=== PATIENT | female | born 1970 | race Caucasian/White ===

== ENCOUNTER 2019-06-08 13:15 | Inpatient (IN) | payer OTHER ==
[2019-06-08] MEDS ORDERED: Promethazine 12.5 MG in Sodium Chloride 0.9% 50 ML IV PRN (15:27)
[2019-06-08] MEDS: Sodium Chloride 0.9% 1,000 ML IV SCH (15:56)
[2019-06-08] MEDS ORDERED: Ciprofloxacin in D5W 400 MG in Premix Bag 1 BAG IV ONE ×2 (16:00)
[2019-06-08] MEDS: Acetaminophen 325 MG Tab PO PRN ×2 (16:04→20:00)
[2019-06-08] MEDS: Ondansetron 4 MG Tab.DIS PO PRN (16:05)
--- NOTE | 2019-06-08 16:24 | PCM.HP.2 ---
H&P History of Present Illness - General Date of Service: 06/08/19 Admit Problem/Dx: Admission Diagnosis/Problem Admission Diagnosis/Problem UTI, Urinary tract infectious disease Source of Information: Patient - History of Present Illness Initial Comments - Free Text/Narative: Patient started having symptoms of UTI, burning with urination at end of stream , frequency, pelvic/flank pain on Monday. Seen by Dr Barragan, her PCP on Monday as she was due to have labs. Was started on Bactrim DS for UTI. Patient has had fevers, rigors, chills on and off since Monday. She has been alternating with Tylenol and Ibuprofen since then. She has had nausea, but no vomiting or diarrhea. Loss of appetite and not drinking much. Denies any sinus symptoms, sore throat, shortness of breath, cough, chest pain, rash or joint pains. 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 History of Diabetes, Hypertension, PCOS, s/p hysterectomy/oophorectomy this year. headache Pain Score (Numeric/FACES): 3 - Related Data Allergies/Adverse Reactions: Allergies Allergy/AdvReac Type Severity Reaction Status Date / Time morphine Allergy Itching Verified 06/08/19 15:52 Home Medications: Home Meds Aspirin [Adult Low Dose Aspirin EC] 81 mg PO DAILY 06/08/19 [History] Dulaglutide [Trulicity] 0.75 mg SQ WEEKLY 06/08/19 [History] Estradiol 1 mg PO DAILY 06/08/19 [History] Lisinopril 20 mg PO DAILY 06/08/19 [History] Spironolactone [Aldactone] 25 mg PO DAILY 06/08/19 [History] Sulfamethoxazole/Trimethoprim [Bactrim Ds Tablet] 1 tab PO BID 06/08/19 [History ] atorvaSTATin [Lipitor] 5 mg PO BEDTIME 06/08/19 [History] metFORMIN [Glucophage XR] 1,000 mg PO BIDMEALS 06/08/19 [History] Past Medical History Cardiovascular History: Reports: High Cholesterol, Hypertension 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: Polycystic Ovaries (hirsutism) : 1 Para: 1 Endocrine/Metabolic History: Reports: Diabetes, Type II - Infectious Disease History Infectious Disease History: Reports: Chicken Pox, Shingles - Past Surgical History Female Surgical History: Reports: Hysterectomy, Salpingo-Oophorectomy Social & Family History - Tobacco Use Smoking Status *Q: Never Smoker - Caffeine Use Caffeine Use: Reports: Soda - Recreational Drug Use Recreational Drug Use: No - Living Situation & Occupation Living situation: Reports: 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 Denies: Abdominal Pain, Black Stool, Bloody Stool, Constipation, Diarrhea, Vomiting Genitourinary: Reports: Dysuria, Frequency, Hematuria. Denies: Flank Pain Musculoskeletal: Denies: Joint Pain Skin: Reports: No Symptoms Psychiatric: Reports: No Symptoms Neurological: Reports: No Symptoms Hematologic/Lymphatic: Reports: No Symptoms Exam - Exam Exam: See Below - Vital Signs Vital Signs: Last Vital Signs Temp 36.9 C 06/08/19 15:27 Pulse 121 H 06/08/19 15:27 Resp 18 06/08/19 15:27 BP 139/91 H 06/08/19 15:27 Pulse Ox 97 06/08/19 15:27 Weight: 103.238 kg - Exam General: Alert, Oriented, Cooperative HEENT: PERRLA, Conjunctiva Clear, EACs Clear, EOMI, Hearing Intact, Mucosa Moist & [place] (geographic tongue), Nares Patent, Normal Nasal Septum, Posterior Pharynx Clear, TMs Clear Neck: Supple, Trachea Midline. No: Lymphadenopathy Lungs: Clear to Auscultation, Normal Respiratory Effort Cardiovascular: Regular Rate, Regular Rhythm GI/Abdominal Exam: Normal Bowel Sounds, Soft, Non-Tender, No Organomegaly, No Distention, No Mass, Tender (LLQ), Other (No CVA tenderness). No: Guarding, Rigid Extremities: Normal Inspection, Normal Range of Motion, Non-Tender, No Pedal Edema, Normal Capillary Refill Skin: Warm, Dry, Intact Neuro Extensive - Mental Status: Alert, Oriented x3, Normal Mood/Affect, Normal Cognition - Patient Data Lab Results Last 24 hrs: Laboratory Results - last 24 hr 06/08/19 06/08/19 Range/Units 13:15 13:22 WBC 9.0 (4.5-12.0) X10-3/uL RBC 4.99 (3.23-5.20) x10(6)uL Hgb 14.4 (11.5-15.5) g/dL Hct 42.7 (30.0-51.3) % MCV 85.6 (80-96) fL MCH 28.8 (27.7-33.6) pg MCHC 33.6 (32.2-35.4) g/dL RDW 13.0 (11.5-15.5) % Plt Count 348 (125-369) X10(3)uL MPV 8.5 (7.4-10.4) fL Neut % (Auto) 70.8 (46-82) % Lymph % (Auto) 11.3 L (13-37) % [place] % (Auto) 14.3 H (4-12) % Eos % (Auto) 3 (1.0-5.0) % Baso % (Auto) 0 (0-2) % Neut # (Auto) 6.4 (1.6-8.3) # Lymph # (Auto) 1.0 (0.6-5.0) # [place] # (Auto) 1.3 (0.0-1.3) # Eos # (Auto) 0.3 (0.0-0.8) # Baso # (Auto) 0.0 (0.0-0.2) # Urine Color Brown (YELLOW) Urine Appearance Cloudy (CLEAR) Urine pH 5.0 (5.0-6.5) Ur Specific [place] 1.020 (1.010-1.025) Urine Protein 100 H (NEGATIVE) mg/dL Urine Glucose (UA) Normal (NORMAL) mg/dL Urine Ketones 50 H (NEGATIVE) mg/dL Urine Occult Blood Large H (NEGATIVE) Urine Nitrite Positive H (NEGATIVE) Urine Bilirubin Small H (NEGATIVE) Urine Urobilinogen 1 H (NEGATIVE) mg/dL Ur Leukocyte Esterase Moderate H (NEGATIVE) Urine RBC Packed H (0-5) Result Diagrams: 06/08/19 13:15 06/08/19 16:12 - Problem List (1) UTI (urinary tract infection) SNOMED Code(s): 04681016 ICD Code: N39.0 - URINARY TRACT INFECTION, SITE NOT SPECIFIED Status: Acute Current Visit: Yes Qualifiers: Urinary tract infection type: site unspecified Hematuria presence: with hematuria Qualified Code(s): N39.0 - Urinary tract infection, site not specified; R31.9 - Hematuria, unspecified (2) Diabetes type 2, controlled SNOMED Code(s): 05614529, 721156713 ICD Code: E11.9 - TYPE 2 DIABETES MELLITUS WITHOUT COMPLICATIONS Status: Acute Current Visit: Yes Qualifiers: Diabetes mellitus extermination supervisor insulin use: without skilled nursing use Diabetes mellitus complication status: without complication Qualified Code(s): E11.9 - Type 2 diabetes mellitus without complications (3) Hypertension SNOMED Code(s): 48834892 ICD Code: I10 - ESSENTIAL (PRIMARY) HYPERTENSION Status: Acute Current Visit: Yes Qualifiers: Hypertension type: essential hypertension Qualified Code(s): I10 - Essential (primary) hypertension (4) Hyperlipidemia SNOMED Code(s): 72647545 ICD Code: E78.5 - HYPERLIPIDEMIA, UNSPECIFIED Status: Acute Current Visit : Yes Qualifiers: Hyperlipidemia type: mixed hyperlipidemia Qualified Code(s): E78.2 - Mixed hyperlipidemia (5) Hirsutism SNOMED Code(s): 392568687 ICD Code: L68.0 - HIRSUTISM Status: Acute Current Visit: Yes (6) History of PCOS SNOMED Code(s): 628806472 ICD Code: Z87.42 - PERSONAL HISTORY OF OTH DISEASES OF THE FEMALE GENITAL TRACT Status: Acute Current Visit: Yes Problem List Initiated/Reviewed/Updated: Yes Orders Last 24hrs: Active Orders 24 hr Category Date Time Status Patient Status [ADT] Routine ADT 06/08/19 15:27 Active Ambulate [RC] PER UNIT ROUTINE Care 06/08/19 15:29 Active Blood Glucose Check, Bedside [RC] BIDMEALS Care 06/08/19 15:27 Active Oxygen Therapy [RC] PRN Care 06/08/19 15:27 Active Up ad Christal [RC] ASDIRECTED Care 06/08/19 15:27 Active VTE/DVT Education [RC] Per Unit Routine Care 06/08/19 15:27 Active Vital Signs [RC] Q4H Care 06/08/19 15:27 Active Clear Liquid Diet [DIET] Diet 06/08/19 Dinner Active BASIC METABOLIC PANEL,BMP [CHEM] Routine Lab 06/08/19 15:56 Ordered BASIC METABOLIC PANEL,BMP [CHEM] Routine Lab 06/09/19 06:00 Ordered CBC WITH AUTO DIFF [HEME] Routine Lab 06/09/19 06:00 Ordered CULTURE URINE [RM] Routine Lab 06/08/19 13:22 Received Acetaminophen [Tylenol] Med 06/08/19 15:27 Active 650 mg PO Q4H PRN Aspirin [Halfprin] Med 06/09/19 09:00 Active 81 mg PO DAILY Ciprofloxacin in D5W [Cipro in D5W 400 MG/200 ML] 400 Med 06/08/19 16:00 Active mg Premix Bag 1 bag IV ONETIME Ciprofloxacin in D5W [Cipro in D5W 400 MG/200 ML] 400 Med 06/08/19 15:45 Pending mg Premix Bag 1 bag IV Q12HR Eflornithine HCl [Vaniqa] Med 06/08/19 21:00 Pending 1 gm TP BID Enoxaparin [Lovenox] Med 06/08/19 15:30 Pending 40 mg SUBCUT Q24H Estradiol Med 06/09/19 09:00 Active 1 mg PO DAILY Lisinopril [Prinivil] Med 06/09/19 09:00 Active 20 mg PO DAILY Ondansetron [Zofran ODT] Med 06/08/19 15:27 Active 4 mg PO Q4H PRN Promethazine [Phenergan] 12.5 mg Med 06/08/19 15:27 Active Sodium Chloride 0.9% [Normal Saline] 50 ml IV Q6H Sodium Chloride 0.9% [Normal Saline] 1,000 ml Med 06/08/19 15:30 Active IV ASDIRECTED Spironolactone [Aldactone] Med 06/09/19 09:00 Active 25 mg PO DAILY atorvaSTATin [Lipitor] Med 06/08/19 21:00 Active 5 mg PO BEDTIME metFORMIN [Glucophage XR] Med 06/08/19 18:00 Active 1,000 mg PO BIDMEALS Resuscitation Status Routine Resus Stat 06/08/19 15:27 Ordered Medication Orders Acetaminophen (Tylenol) 650 mg PO Q4H PRN PRN Reason: Pain (Mild 1-3)/fever Last Admin: 06/08/19 16:04 Dose: 650 mg Aspirin (Halfprin) 81 mg PO DAILY JOYA Atorvastatin Calcium (Lipitor) 5 mg PO BEDTIME JOYA Enoxaparin Sodium (Lovenox) 40 mg SUBCUT Q24H [facility] Estradiol (Estradiol) 1 mg PO DAILY [facility] Ciprofloxacin/Dextrose 400 mg/ (Premix) 200 mls @ 200 mls/hr IV Q12HR [facility] Promethazine HCl 12.5 mg/ (Sodium Chloride) 50.5 mls @ 200 mls/hr IV Q6H PRN PRN Reason: Nausea/Vomiting Sodium Chloride (Normal Saline) 1,000 mls @ 125 mls/hr IV ASDIRECTED [facility] Last Admin: 06/08/19 15:56 Dose: 125 mls/hr Ciprofloxacin/Dextrose 400 mg/ (Premix) 200 mls @ 200 mls/hr IV ONETIME ONE Stop: 06/08/19 16:59 Last Admin: 06/08/19 15:54 Dose: 200 mls/hr Lisinopril (Prinivil) 20 mg PO DAILY [facility] Metformin HCl (Glucophage Xr) 1,000 mg PO BIDMEALS [facility] Non-Formulary Medication (Eflornithine Hcl [Vaniqa]) 1 gm TP BID [facility] Ondansetron HCl (Zofran Odt) 4 mg PO Q4H PRN PRN Reason: nausea, able to take PO Last Admin: 06/08/19 16:05 Dose: 4 mg Spironolactone (Aldactone) 25 mg PO DAILY [facility] Assessment/Plan Comment:: 1. Admit to Inpatient for failed outpatient treatment of UTI, fevers/rigors. 2. Add BMP, UC is ordered. Repeat labs in AM. 3. Ciprofloxacin 400 mg IV q12hr. 4. DVT prophylaxis Lovenox 40 mg SQ daily. 5. Clear liquid diet. 6. Accuchecks bid with meals. 7. Continue home medications, except Trulicity as she takes this on Monday. 8. FULL CODE 9. Adjust treatments as necessary.
[2019-06-08] MEDS: metFORMIN 500 MG Tab.ER PO SCH (17:24)
[2019-06-08] MEDS: Enoxaparin 40 MG/0.4 ML Syringe SUBCUT SCH (17:24)
[2019-06-08] MEDS: atorvaSTATin 10 MG Tab PO SCH (20:00)
[2019-06-08] MEDS ORDERED: EFLORNITHINE HCL TP SCH (21:00)
[2019-06-09] MEDS: Sodium Chloride 0.9% 1,000 ML IV SCH ×3 (00:46→19:37)
[2019-06-09] MEDS: Ciprofloxacin in D5W 400 MG in Premix Bag 1 BAG IV SCH ×4 (04:13→16:06)
[2019-06-09] MEDS: Ondansetron 4 MG Tab.DIS PO PRN (06:06)
[2019-06-09] MEDS: Acetaminophen 325 MG Tab PO PRN ×2 (06:06→23:19)
[2019-06-09] MEDS: metFORMIN 500 MG Tab.ER PO SCH ×2 (07:55→18:31)
[2019-06-09] MEDS: Spironolactone 25 MG Tab PO SCH (08:01)
[2019-06-09] MEDS: Aspirin 81 MG Tab.EC PO SCH (08:02)
[2019-06-09] MEDS: Lisinopril 20 MG Tab PO SCH (08:02)
--- NOTE | 2019-06-09 09:14 | PCM.PN ---
- General Info Date of Service: 06/09/19 Subjective Update: Patient feeling better, some nausea today but resolved with medication. Had regular breakfast this morning and felt it went ok. Still having some LLQ pain, less blood in urine. No fevers overnight and this morning. Small bowel movement today. - Patient Data Vitals - Most Recent: Last Vital Signs Temp 36.3 C 06/09/19 08:00 Pulse 79 06/09/19 08:00 Resp 16 06/09/19 08:00 BP 118/86 06/09/19 08:02 Pulse Ox 95 06/09/19 08:00 Weight - Most Recent: 103.238 kg Lab Results Last 24 Hours: Laboratory Results - last 24 hr 06/08/19 06/08/19 06/08/19 Range/Units 13:15 13:22 16:12 WBC 9.0 (4.5-12.0) X10-3/uL RBC 4.99 (3.23-5.20) x10(6)uL Hgb 14.4 (11.5-15.5) g/dL Hct 42.7 (30.0-51.3) % MCV 85.6 (80-96) fL MCH 28.8 (27.7-33.6) pg MCHC 33.6 (32.2-35.4) g/dL RDW 13.0 (11.5-15.5) % Plt Count 348 (125-369) X10(3)uL MPV 8.5 (7.4-10.4) fL Neut % (Auto) 70.8 (46-82) % Lymph % (Auto) 11.3 L (13-37) % [place] % (Auto) 14.3 H (4-12) % Eos % (Auto) 3 (1.0-5.0) % Baso % (Auto) 0 (0-2) % Neut # (Auto) 6.4 (1.6-8.3) # Lymph # (Auto) 1.0 (0.6-5.0) # [place] # (Auto) 1.3 (0.0-1.3) # Eos # (Auto) 0.3 (0.0-0.8) # Baso # (Auto) 0.0 (0.0-0.2) # Sodium 134 L (135-145) mmol/L Potassium 3.8 (3.5-5.3) mmol/L Chloride 94 L (100-110) mmol/L Carbon Dioxide 29 (21-32) mmol/L BUN 12 (7-18) mg/dL Creatinine 1.0 (0.55-1.02) mg/dL Est Cr Clr Drug Dosing 70.16 mL/min Estimated GFR (MDRD) 59 L (>60) BUN/Creatinine Ratio 12.0 (9-20) Glucose 97 (80-116) mg/dL POC Glucose (80-116) mg/dL Calcium 8.7 (8.6-10.2) mg/dL Urine Color Brown (YELLOW) Urine Appearance Cloudy (CLEAR) Urine pH 5.0 (5.0-6.5) Ur Specific [place] 1.020 (1.010-1.025) Urine Protein 100 H (NEGATIVE) mg/dL Urine Glucose (UA) Normal (NORMAL) mg/dL Urine Ketones 50 H (NEGATIVE) mg/dL Urine Occult Blood Large H (NEGATIVE) Urine Nitrite Positive H (NEGATIVE) Urine Bilirubin Small H (NEGATIVE) Urine Urobilinogen 1 H (NEGATIVE) mg/dL Ur Leukocyte Esterase Moderate H (NEGATIVE) Urine RBC Packed H (0-5) 06/08/19 06/09/19 06/09/19 Range/Units 17:30 06:18 06:18 WBC 6.9 (4.5-12.0) X10-3/uL RBC 4.40 (3.23-5.20) x10(6)uL Hgb 12.6 (11.5-15.5) g/dL Hct 37.4 (30.0-51.3) % MCV 85.2 (80-96) fL MCH 28.6 (27.7-33.6) pg MCHC 33.6 (32.2-35.4) g/dL RDW 12.9 (11.5-15.5) % Plt Count 292 (125-369) X10(3)uL MPV 8.2 (7.4-10.4) fL Neut % (Auto) 56.2 (46-82) % Lymph % (Auto) 19.5 (13-37) % [place] % (Auto) 17.9 H (4-12) % Eos % (Auto) 6 H (1.0-5.0) % Baso % (Auto) 1 (0-2) % Neut # (Auto) 4.0 (1.6-8.3) # Lymph # (Auto) 1.3 (0.6-5.0) # [place] # (Auto) 1.2 (0.0-1.3) # Eos # (Auto) 0.4 (0.0-0.8) # Baso # (Auto) 0.0 (0.0-0.2) # Sodium 137 (135-145) mmol/L Potassium 3.6 (3.5-5.3) mmol/L Chloride 99 L D (100-110) mmol/L Carbon Dioxide 28 (21-32) mmol/L BUN 9 (7-18) mg/dL Creatinine 0.9 (0.55-1.02) mg/dL Est Cr Clr Drug Dosing 77.95 mL/min Estimated GFR (MDRD) > 60 (>60) BUN/Creatinine Ratio 10.0 (9-20) Glucose 119 H (80-116) mg/dL POC Glucose 94 (80-116) mg/dL Calcium 7.9 L (8.6-10.2) mg/dL Urine Color (YELLOW) Urine Appearance (CLEAR) Urine pH (5.0-6.5) Ur Specific [place] (1.010-1.025) Urine Protein (NEGATIVE) mg/dL Urine Glucose (UA) (NORMAL) mg/dL Urine Ketones (NEGATIVE) mg/dL Urine Occult Blood (NEGATIVE) Urine Nitrite (NEGATIVE) Urine Bilirubin (NEGATIVE) Urine Urobilinogen (NEGATIVE) mg/dL Ur Leukocyte Esterase (NEGATIVE) Urine RBC (0-5) 06/09/19 Range/Units 08:05 WBC (4.5-12.0) X10-3/uL RBC (3.23-5.20) x10(6)uL Hgb (11.5-15.5) g/dL Hct (30.0-51.3) % MCV (80-96) fL MCH (27.7-33.6) pg MCHC (32.2-35.4) g/dL RDW (11.5-15.5) % Plt Count (125-369) X10(3)uL MPV (7.4-10.4) fL Neut % (Auto) (46-82) % Lymph % (Auto) (13-37) % [place] % (Auto) (4-12) % Eos % (Auto) (1.0-5.0) % Baso % (Auto) (0-2) % Neut # (Auto) (1.6-8.3) # Lymph # (Auto) (0.6-5.0) # [place] # (Auto) (0.0-1.3) # Eos # (Auto) (0.0-0.8) # Baso # (Auto) (0.0-0.2) # Sodium (135-145) mmol/L Potassium (3.5-5.3) mmol/L Chloride (100-110) mmol/L Carbon Dioxide (21-32) mmol/L BUN (7-18) mg/dL Creatinine (0.55-1.02) mg/dL Est Cr Clr Drug Dosing mL/min Estimated GFR (MDRD) (>60) BUN/Creatinine Ratio (9-20) Glucose (80-116) mg/dL POC Glucose 123 H (80-116) mg/dL Calcium (8.6-10.2) mg/dL Urine Color (YELLOW) Urine Appearance (CLEAR) Urine pH (5.0-6.5) Ur Specific [place] (1.010-1.025) Urine Protein (NEGATIVE) mg/dL Urine Glucose (UA) (NORMAL) mg/dL Urine Ketones (NEGATIVE) mg/dL Urine Occult Blood (NEGATIVE) Urine Nitrite (NEGATIVE) Urine Bilirubin (NEGATIVE) Urine Urobilinogen (NEGATIVE) mg/dL Ur Leukocyte Esterase (NEGATIVE) Urine RBC (0-5) Angel Results Last 24 Hours: Microbiology 06/08/19 13:22 Urine Culture - Preliminary Urine, Clean Catch NO GROWTH AFTER 1 DAY Med Orders - Current: Current Medications Acetaminophen (Tylenol) 650 mg PO Q4H PRN PRN Reason: Pain (Mild 1-3)/fever Last Admin: 06/09/19 06:06 Dose: 650 mg Aspirin (Halfprin) 81 mg PO DAILY [facility] Last Admin: 06/09/19 08:02 Dose: 81 mg Atorvastatin Calcium (Lipitor) 5 mg PO BEDTIME [facility] Last Admin: 06/08/19 20:00 Dose: 5 mg Enoxaparin Sodium (Lovenox) 40 mg SUBCUT Q24H [facility] Last Admin: 06/08/19 17:24 Dose: 40 mg Estradiol (Estradiol) 1 mg PO DAILY [facility] Ciprofloxacin/Dextrose 400 mg/ (Premix) 200 mls @ 200 mls/hr IV Q12H [facility] Last Admin: 06/09/19 04:13 Dose: 200 mls/hr Promethazine HCl 12.5 mg/ (Sodium Chloride) 50.5 mls @ 200 mls/hr IV Q6H PRN PRN Reason: Nausea/Vomiting Sodium Chloride (Normal Saline) 1,000 mls @ 125 mls/hr IV ASDIRECTED [facility] Last Admin: 06/09/19 00:46 Dose: 125 mls/hr Lisinopril (Prinivil) 20 mg PO DAILY [facility] Last Admin: 06/09/19 08:02 Dose: 20 mg Metformin HCl (Glucophage Xr) 1,000 mg PO BIDMEALS [facility] Last Admin: 06/09/19 07:55 Dose: 1,000 mg Ondansetron HCl (Zofran Odt) 4 mg PO Q4H PRN PRN Reason: nausea, able to take PO Last Admin: 06/09/19 06:06 Dose: 4 mg Spironolactone (Aldactone) 25 mg PO DAILY [facility] Last Admin: 06/09/19 08:01 Dose: 25 mg Discontinued Medications Ciprofloxacin/Dextrose 400 mg/ (Premix) 200 mls @ 200 mls/hr IV ONETIME ONE Stop: 06/08/19 16:59 Last Admin: 06/08/19 15:54 Dose: 200 mls/hr Non-Formulary Medication (Eflornithine Hcl [Vaniqa]) 1 gm TP BID [facility] - Exam General: Alert, Oriented, Cooperative Lungs: Clear to Auscultation, Normal Respiratory Effort Cardiovascular: Regular Rate, Regular Rhythm GI/Abdominal Exam: Normal Bowel Sounds, Soft, No Distention, Guarding (LLQ), Tender (LLQ). No: Rigid, Rebound Extremities: No Pedal Edema - Problem List & Annotations (1) UTI (urinary tract infection) SNOMED Code(s): 94636199 Code(s): N39.0 - URINARY TRACT INFECTION, SITE NOT SPECIFIED Status: Acute Current Visit: Yes Qualifiers: Urinary tract infection type: site unspecified Hematuria presence: with hematuria Qualified Code(s): N39.0 - Urinary tract infection, site not specified; R31.9 - Hematuria, unspecified (2) Diabetes type 2, controlled SNOMED Code(s): 69591527, 509971079 Code(s): E11.9 - TYPE 2 DIABETES MELLITUS WITHOUT COMPLICATIONS Status: Acute Current Visit: Yes Qualifiers: Diabetes mellitus custodial insulin use: without terminal makeup operator use Diabetes mellitus complication status: without complication Qualified Code(s): E11.9 - Type 2 diabetes mellitus without complications (3) Hypertension SNOMED Code(s): 36540649 Code(s): I10 - ESSENTIAL (PRIMARY) HYPERTENSION Status: Acute Current Visit: Yes Qualifiers: Hypertension type: essential hypertension Qualified Code(s): I10 - Essential (primary) hypertension (4) Hyperlipidemia SNOMED Code(s): 78664002 Code(s): E78.5 - HYPERLIPIDEMIA, UNSPECIFIED Status: Acute Current Visit : Yes Qualifiers: Hyperlipidemia type: mixed hyperlipidemia Qualified Code(s): E78.2 - Mixed hyperlipidemia (5) Hirsutism SNOMED Code(s): 254111318 Code(s): L68.0 - HIRSUTISM Status: Acute Current Visit: Yes (6) History of PCOS SNOMED Code(s): 053415858 Code(s): Z87.42 - PERSONAL HISTORY OF OTH DISEASES OF THE FEMALE GENITAL TRACT Status: Acute Current Visit: Yes - Problem List Review Problem List Initiated/Reviewed/Updated: Yes - My Orders Last 24 Hours: My Active Orders 06/08/19 15:27 Patient Status [ADT] Routine Blood Glucose Check, Bedside [RC] BIDMEALS Oxygen Therapy [RC] PRN Up ad Christal [RC] ASDIRECTED VTE/DVT Education [RC] Per Unit Routine Vital Signs [RC] QSHIFT Acetaminophen [Tylenol] 650 mg PO Q4H PRN Ondansetron [Zofran ODT] 4 mg PO Q4H PRN Promethazine [Phenergan] 12.5 mg Sodium Chloride 0.9% [Normal Saline] 50 ml IV Q6H Resuscitation Status Routine 06/08/19 15:29 Ambulate [RC] PER UNIT ROUTINE 06/08/19 15:30 Sodium Chloride 0.9% [Normal Saline] 1,000 ml IV ASDIRECTED 06/08/19 16:00 Enoxaparin [Lovenox] 40 mg SUBCUT Q24H 06/08/19 18:00 metFORMIN [Glucophage XR] 1,000 mg PO BIDMEALS 06/08/19 21:00 atorvaSTATin [Lipitor] 5 mg PO BEDTIME 06/09/19 04:00 Ciprofloxacin in D5W [Cipro in D5W 400 MG/200 ML] 400 mg Premix Bag 1 bag IV Q12H 06/09/19 09:00 Aspirin [Halfprin] 81 mg PO DAILY Estradiol 1 mg PO DAILY Lisinopril [Prinivil] 20 mg PO DAILY Spironolactone [Aldactone] 25 mg PO DAILY 06/09/19 Breakfast Regular Diet [DIET] - Plan Plan:: 1. UC shows no growth so far, CBC/BMP normal. 3. Ciprofloxacin 400 mg IV q12hr. 4. DVT prophylaxis Lovenox 40 mg SQ daily. 5. Change diet to regular, will watch her sugars and change to Consistent carb if needed. 6. Accuchecks bid with meals. 7. Continue home medications, except Trulicity as she takes this on Monday. 8. FULL CODE 9. Adjust treatments as necessary.
[2019-06-09] MEDS: Estradiol 1 MG Tab PO SCH (11:37)
[2019-06-09] MEDS: Enoxaparin 40 MG/0.4 ML Syringe SUBCUT SCH (16:02)
[2019-06-09] MEDS: atorvaSTATin 10 MG Tab PO SCH (20:17)
[2019-06-10] MEDS: Sodium Chloride 0.9% 1,000 ML IV SCH (03:45)
[2019-06-10] MEDS: Ciprofloxacin in D5W 400 MG in Premix Bag 1 BAG IV SCH ×2 (03:45)
[2019-06-10] MEDS: Acetaminophen 325 MG Tab PO PRN (07:50)
[2019-06-10] MEDS: metFORMIN 500 MG Tab.ER PO SCH (08:52)
[2019-06-10] MEDS: Estradiol 1 MG Tab PO SCH (08:53)
[2019-06-10] MEDS: Aspirin 81 MG Tab.EC PO SCH (08:53)
[2019-06-10] MEDS: Spironolactone 25 MG Tab PO SCH (08:53)
[2019-06-10] MEDS: Lisinopril 20 MG Tab PO SCH (08:53)
--- NOTE | 2019-06-10 12:45 | PCM.DCSUM1 ---
Discharge Summary - Hospital Course HPI Initial Comments: 49 yr old patient started having symptoms of UTI, burning with urination at end of stream, frequency, pelvic/flank pain on Monday. Seen by Dr Barragan, her PCP on Monday as she was due to have labs. Was started on Bactrim DS for UTI. Patient has had fevers, rigors, chills on and off since Monday. She has been alternating with Tylenol and Ibuprofen since then. She has had nausea, but no vomiting or diarrhea. Loss of appetite and not drinking much. Denies any sinus symptoms, sore throat, shortness of breath, cough, chest pain, rash or joint pains. 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 History of Diabetes, Hypertension, PCOS, s/p hysterectomy/oophorectomy this year. - Discharge Data Discharge Date: 06/10/19 Discharge Disposition: Home, Self-Care 01 Condition: Good - Referral to Home Health Primary Care Physician: Juanita Barragan MD - Discharge Diagnosis/Problem(s) (1) UTI (urinary tract infection) SNOMED Code(s): 42748377 ICD Code: N39.0 - URINARY TRACT INFECTION, SITE NOT SPECIFIED Status: Acute Current Visit: Yes Problem Details: E. coli([facility] urine culture results): sensitive to Ciprofloxacin Qualifiers: Urinary tract infection type: site unspecified Hematuria presence: with hematuria Qualified Code(s): N39.0 - Urinary tract infection, site not specified; R31.9 - Hematuria, unspecified (2) Diabetes type 2, controlled SNOMED Code(s): 77546293, 525134926 ICD Code: E11.9 - TYPE 2 DIABETES MELLITUS WITHOUT COMPLICATIONS Status: Chronic Current Visit: Yes Qualifiers: Diabetes mellitus shelter insulin use: without terminal make up operator use Diabetes mellitus complication status: without complication Qualified Code(s): E11.9 - Type 2 diabetes mellitus without complications (3) Hypertension SNOMED Code(s): 27434034 ICD Code: I10 - ESSENTIAL (PRIMARY) HYPERTENSION Status: Chronic Current Visit: Yes Qualifiers: Hypertension type: essential hypertension Qualified Code(s): I10 - Essential (primary) hypertension (4) Hyperlipidemia SNOMED Code(s): 94818772 ICD Code: E78.5 - HYPERLIPIDEMIA, UNSPECIFIED Status: Chronic Current Visit: Yes Qualifiers: Hyperlipidemia type: mixed hyperlipidemia Qualified Code(s): E78.2 - Mixed hyperlipidemia (5) Hirsutism SNOMED Code(s): 468489512 ICD Code: L68.0 - HIRSUTISM Status: Chronic Current Visit: Yes (6) History of PCOS SNOMED Code(s): 385482872 ICD Code: Z87.42 - PERSONAL HISTORY OF OTH DISEASES OF THE FEMALE GENITAL TRACT Status: Chronic Current Visit: Yes - Patient Summary/Data Hospital Course: Received NS at 125 ml/hr, Ciprofloxacin 400 mg q12hr for UTI. Urine culture had no growth but 1st urine culture done in [facility] was positive for E. coli sensitive to Ciprofloxacin. She was initially nauseous, poor appetite so was started on clear diet was advanced to Diabetic diet. Still had some nausea on Monday but had no antiemetic since Monday. Had clear urine by morning of discharge with IV fluids, tolerating her breakfast so will discharge on Ciprofloxacin for total 7 day course of antibiotics with follow up with her primary for repeat UA. - Patient Instructions Diet: Diabetic Diet Activity: As Tolerated Driving: May Drive Today Showering/Bathing: May Shower Notify Provider of: Fever, Increased Pain, Nausea and/or Vomiting Other/Special Instructions: Follow up with Dr Barragan in 1 week for recheck. - Discharge Plan *PRESCRIPTION DRUG MONITORING PROGRAM REVIEWED*: Not Applicable *COPY OF PRESCRIPTION DRUG MONITORING REPORT IN PATIENT [place]: Not Applicable Prescriptions/Med Rec: Ciprofloxacin [Ciprofloxacin HCl] 500 mg PO BID 4 Days #8 tab Home Medications: Home Meds Aspirin [Adult Low Dose Aspirin EC] 81 mg PO DAILY 06/08/19 [History] Dulaglutide [Trulicity] 0.75 mg SQ WEEKLY 06/08/19 [History] Estradiol 1 mg PO DAILY 06/08/19 [History] Lisinopril 20 mg PO DAILY 06/08/19 [History] Spironolactone [Aldactone] 25 mg PO DAILY 06/08/19 [History] atorvaSTATin [Lipitor] 5 mg PO BEDTIME 06/08/19 [History] metFORMIN [Glucophage XR] 1,000 mg PO BIDMEALS 06/08/19 [History] Ciprofloxacin [Ciprofloxacin HCl] 500 mg PO BID 4 Days #8 tab 06/10/19 [Rx] Patient Handouts: Urinary Tract Infection, Adult, [id number], Ciprofloxacin tablets, Preventing Antibiotic Resistance - Discharge Summary/Plan Comment DC Time >30 min.: No - Patient Data Vitals - Most Recent: Last Vital Signs Temp 36.6 C 06/10/19 08:00 Pulse 72 06/10/19 08:00 Resp 18 06/10/19 08:00 BP 118/80 06/10/19 08:53 Pulse Ox 97 06/10/19 08:00 Weight - Most Recent: 103.238 kg I&O - Last 24 hours: Intake & Output 06/09/19 06/10/19 06/10/19 22:59 06:59 14:59 Intake Total 3304 Balance 3304 Lab Results - Last 24 hrs: Laboratory Results - last 24 hr 06/09/19 06/10/19 Range/Units 17:14 07:46 POC Glucose 119 H 114 (80-116) mg/dL SIMONE Results - Last 24 hrs: Microbiology 06/08/19 13:22 Urine Culture - Final Urine, Clean Catch MIXED POSITIVE MANDEEP DAY 2 Med Orders - Current: Current Medications Acetaminophen (Tylenol) 650 mg PO Q4H PRN PRN Reason: Pain (Mild 1-3)/fever Last Admin: 06/10/19 07:50 Dose: 650 mg Aspirin (Halfprin) 81 mg PO DAILY [facility] Last Admin: 06/10/19 08:53 Dose: 81 mg Atorvastatin Calcium (Lipitor) 5 mg PO BEDTIME [facility] Last Admin: 06/09/19 20:17 Dose: 5 mg Enoxaparin Sodium (Lovenox) 40 mg SUBCUT Q24H [facility] Last Admin: 06/09/19 16:02 Dose: 40 mg Estradiol (Estradiol) 1 mg PO DAILY [facility] Last Admin: 06/10/19 08:53 Dose: 1 mg Ciprofloxacin/Dextrose 400 mg/ (Premix) 200 mls @ 200 mls/hr IV Q12H [facility] Last Admin: 06/10/19 03:45 Dose: 200 mls/hr Promethazine HCl 12.5 mg/ (Sodium Chloride) 50.5 mls @ 200 mls/hr IV Q6H PRN PRN Reason: Nausea/Vomiting Sodium Chloride (Normal Saline) 1,000 mls @ 125 mls/hr IV ASDIRECTED [facility] Last Admin: 06/10/19 03:45 Dose: 125 mls/hr Lisinopril (Prinivil) 20 mg PO DAILY [facility] Last Admin: 06/10/19 08:53 Dose: 20 mg Metformin HCl (Glucophage Xr) 1,000 mg PO BIDMEALS [facility] Last Admin: 06/10/19 08:52 Dose: 1,000 mg Ondansetron HCl (Zofran Odt) 4 mg PO Q4H PRN PRN Reason: nausea, able to take PO Last Admin: 06/09/19 06:06 Dose: 4 mg Spironolactone (Aldactone) 25 mg PO DAILY [facility] Last Admin: 06/10/19 08:53 Dose: 25 mg Discontinued Medications Ciprofloxacin/Dextrose 400 mg/ (Premix) 200 mls @ 200 mls/hr IV ONETIME ONE Stop: 06/08/19 16:59 Last Admin: 06/08/19 15:54 Dose: 200 mls/hr Non-Formulary Medication (Eflornithine Hcl [Vaniqa]) 1 gm TP BID [facility] - Exam General: Reports: Alert, Oriented, Cooperative Lungs: Reports: Clear to Auscultation, Normal Respiratory Effort Cardiovascular: Reports: Regular Rate, Regular Rhythm GI/Abdominal Exam: Normal Bowel Sounds, Soft, Non-Tender, No Distention Extremities: No Pedal Edema Skin: Reports: Warm, Dry, Intact Psy/Mental Status: Reports: Alert, Normal Affect, Normal Mood
== END 2019-06-10 11:31 | disposition home or self-care (01) | DRG 690 ==
LOC: FB.CLBR 13:15 → FB.MS 14:44
PROVIDERS: ADMIT Family Medicine; ATTEND Family Medicine
DX: N39.0 Urinary tract infection, site not specified (principal); B96.20 Unspecified Escherichia coli [E. coli] as the cause of diseases classified elsewhere; R31.9 Hematuria, unspecified; E11.9 Type 2 diabetes mellitus without complications; I10 Essential (primary) hypertension; E78.5 Hyperlipidemia, unspecified; L68.0 Hirsutism; E78.00 Pure hypercholesterolemia, unspecified; Z16.39 Resistance to other specified antimicrobial drug; Z87.42 Personal history of other diseases of the female genital tract; Z79.82 Long term (current) use of aspirin; Z79.84 Long term (current) use of oral hypoglycemic drugs; Z79.899 Other long term (current) drug therapy; Z88.5 Allergy status to narcotic agent; Z90.710 Acquired absence of both cervix and uterus
CPT/HCPCS: 36415; 80048; 81001; 82962; 85025; 87086; A9270-GY; J0744; J1650; J7030